=== PATIENT | male | born 1975 | race Caucasian/White ===

== ENCOUNTER 2018-12-05 19:35 | Emergency (ER) | payer SELFPAY ==
[2018-12-05] MEDS ORDERED: Acetaminophen 500 MG TAB ONE (20:06)
== END 2018-12-05 20:15 | disposition home or self-care (01) ==
LOC: MADERS 19:35
DX: S86.811A Strain of other muscle(s) and tendon(s) at lower leg level, right leg, initial encounter (principal); X50.1XXA Overexertion from prolonged static or awkward postures, initial encounter
CPT/HCPCS: 99283

== ENCOUNTER 2019-10-28 21:31 | Emergency (ER) | payer SELFPAY | END 2019-10-28 21:57 | disposition home or self-care (01) | LOC: MADERS 21:31 | DX: K02.9 Dental caries, unspecified (principal); I10 Essential (primary) hypertension; F32.9 Major depressive disorder, single episode, unspecified | CPT/HCPCS: 99282 ==

== ENCOUNTER 2020-07-31 18:39 | Emergency (ER) | payer SELFPAY ==
[2020-07-31] MEDS ORDERED: Cephalexin 500 MG CAP ONE (19:06)
== END 2020-07-31 19:17 | disposition home or self-care (01) ==
LOC: MADERS 18:39
DX: L03.115 Cellulitis of right lower limb (principal); I10 Essential (primary) hypertension
CPT/HCPCS: 99283

== ENCOUNTER 2020-08-01 23:46 | Inpatient (IN) | payer SELFPAY ==
[2020-08-02] MEDS ORDERED: Cefepime 2 GM VIAL ONE (00:32)
[2020-08-02] MEDS ORDERED: Sodium Chloride 0.9% 100 ML ONE (00:33)
[2020-08-02] MEDS ORDERED: HYDROcodone/Acetaminophen 5/325 mg Tablet ONE (00:48)
[2020-08-02] MEDS ORDERED: Sodium Chloride 0.9% 1,000 ML ONE (00:48)
[2020-08-02] MEDS ORDERED: Sodium Chloride 0.9% 250 ML 500 ML ONE (00:55)
[2020-08-02 00:57] LABS: Anion Gap 14 mmol/L (10-20); BUN (Urea Nitrogen) 22 mg/dL (8.9-20.6); Calc. Creatinine Clearance 0 mL/min (70-130); Calcium 8.9 mg/dL (7.8-10.44); Carbon Dioxide 22 mmol/L (22-29); Chloride 106 mmol/L (98-107); Glucose 109 mg/dL (70-105); Potassium 3.7 mmol/L (3.5-5.1); Sodium 138 mmol/L (136-145)
[2020-08-02 01:02] LABS: #Basophils 0.1 thou/uL (0.0-0.2); #Eosinphils 0.1 thou/uL (0.0-0.7); #Lymphocytes 1.5 thou/uL (1.20-3.40); #Monocytes 1.1 thou/uL (0.11-0.59); #Neutrophils 10.1 thou/uL (1.40-6.50); %Basophils 0.6 % (0.0-1.0); %Eosinophils 1.1 % (0.0-10.0); %Lymphocytes 11.6 % (21.0-51.0); %Monocytes 8.5 % (0.0-10.0); %Neutrophils 78.3 % (42.0-75.0); Hemoglobin 13.4 g/dL (14.0-18.0); Mean Corpuscular HGB CONC 33.5 g/dL (32.0-36.0); Mean Corpuscular Hemoglobin 29.2 pg (27.0-31.0); Mean Corpuscular Volume 87.4 fL (78.0-98.0); Mean Platelet Volume 7.8 fL (7.4-10.4); Platelet Count 192 thou/uL (130-400); RBC Distribution Width 11.3 % (11.5-14.5); Red Blood Cell (RBC) Count 4.57 mill/uL (4.70-6.10); White Blood Cell (WBC) Count 12.8 thou/uL (4.8-10.8)
[2020-08-02 02:40] VITALS: BMI 30.9
[2020-08-02] MEDS ORDERED: Ondansetron ODT 4 MG TAB SL PRN (02:44)
[2020-08-02] MEDS ORDERED: HYDROcodone/Acetaminophen 5/325 mg Tablet PO PRN (02:45)
[2020-08-02] MEDS: Cefepime 2 GM in Sodium Chloride 0.9% 100 ML IVPB SCH ×2 (08:07→16:09)
[2020-08-02] MEDS: HYDROcodone/Acetaminophen 5/325 mg Tablet PO PRN ×2 (08:11→13:50)
[2020-08-02] MEDS ORDERED: Acetaminophen 325 MG TAB PO PRN (08:30)
[2020-08-02] MEDS: Dorzolamide HCl 2% Ophth Soln 10 ml Bottle L EYE SCH ×2 (09:39→21:17)
[2020-08-02] MEDS: Brimonidine Tartrate 0.2% Ophth Soln 5 ml Bottle L EYE SCH ×2 (09:40→21:16)
[2020-08-02] MEDS: Vancomycin 1.5 GRAM/300 ML BAG 1.5 GM in Premix Bag 1 BAG IVPB SCH (13:19)
[2020-08-02] MEDS ORDERED: FLU VACC QS2020-21(6MOS UP)/PF 60 MCG/0.5 ML SYRINGE IM ONE (21:00)
[2020-08-03] MEDS: Cefepime 2 GM in Sodium Chloride 0.9% 100 ML IVPB SCH ×2 (00:06→08:31)
[2020-08-03] MEDS: Vancomycin 1.5 GRAM/300 ML BAG 1.5 GM in Premix Bag 1 BAG IVPB SCH (00:06)
[2020-08-03] MEDS: HYDROcodone/Acetaminophen 5/325 mg Tablet PO PRN (02:25)
[2020-08-03 03:11] LABS: SARS-CoV-2 MS2 Positive; SARS-CoV-2 N Gene Negative; SARS-CoV-2 S Gene Negative; SARS-CoV-2 by NAA Not Detected (NotDetected); SARS-CoV-2 orf1ab Negative
[2020-08-03 05:56] LABS: #Basophils 0.1 thou/uL (0.0-0.2); #Eosinphils 0.1 thou/uL (0.0-0.7); #Lymphocytes 1.4 thou/uL (1.20-3.40); #Monocytes 0.8 thou/uL (0.11-0.59); %Basophils 0.8 % (0.0-1.0); %Eosinophils 1.4 % (0.0-10.0); %Lymphocytes 14.7 % (21.0-51.0); %Neutrophils 75.1 % (42.0-75.0); Hemoglobin 13.9 g/dL (14.0-18.0); Mean Corpuscular HGB CONC 33.3 g/dL (32.0-36.0); Mean Corpuscular Volume 87.2 fL (78.0-98.0); Mean Platelet Volume 7.5 fL (7.4-10.4); Platelet Count 185 thou/uL (130-400); RBC Distribution Width 11.2 % (11.5-14.5); Red Blood Cell (RBC) Count 4.79 mill/uL (4.70-6.10); White Blood Cell (WBC) Count 9.4 thou/uL (4.8-10.8)
[2020-08-03 06:05] LABS: Anion Gap 13 mmol/L (10-20); BUN (Urea Nitrogen) 12 mg/dL (8.9-20.6); Calc. Creatinine Clearance 175 mL/min (70-130); Carbon Dioxide 23 mmol/L (22-29); Chloride 106 mmol/L (98-107); Glucose 100 mg/dL (70-105); Potassium 4.1 mmol/L (3.5-5.1); Sodium 138 mmol/L (136-145)
--- NOTE | 2020-08-03 06:30 | HP ---
CHIEF COMPLAINT: Infection in right leg. HISTORY OF PRESENT ILLNESS: The patient is a 45-year-old white male, who has a history of hypertension. He said that he scratched his right knee when he knelt down and something abraded his knee or stuck in his knee. He noticed that the next day, the knee was very red and swelled. He went to the emergency room on 07/31 and was found to have a cellulitis of the right knee. It just localized to the area of the patella and he was not running any fever. He was discharged on cephalexin 500 mg to take 4 times a day. The patient returned to the emergency room late on the evening of 08/01 because the right knee had become very swelled and the redness had extended correction down the lower leg and correction up the upper leg. He was re-evaluated in the emergency room that evening and found to have cellulitis that extends to these limits as mentioned above and indicated that he had failed outpatient management. His lab studies showed H and H of 13.4 and 39.9, white cell count 12,800, with 78% segs, 12% lymphocytes, and platelet count of 192,000. His sodium was 138, potassium 3.7, BUN 22, creatinine 0.86, glucose was 109. Lactic acid 1.0. The patient was admitted to the hospital early on the morning of 08/02/2020 for cellulitis of the right leg that had not responded to outpatient management. He was started on cefepime and vancomycin. The patient was seen early on the morning of 08/02. The patient said he was feeling a lot better, the leg was not hurting like it was, the swelling has gone way down and the redness has really faded and has shrunk to a smaller area. He feels much better. He has had no fever. The patient was able to relate to me the history of kneeling down and something abrading or scraping the right knee and then the development of the infection. 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 The patient has hypertension. He has had meniscus surgery arthroscopically on the right knee years ago. Years ago, he had a fracture of the mandible requiring surgical repair. PRESENT MEDICATIONS: The patient states he takes lisinopril daily, not sure of the dosage. ALLERGIES: BETA-BLOCKERS, MORPHINE, AND PENICILLIN. HE HAS BEEN TAKING CEPHALEXIN RECENTLY WITH NO ILL EFFECT. REVIEW OF SYSTEMS: CONSTITUTIONAL: The patient has had no recent weight gain or loss. He has had no chills or fever. EYES, EARS, NOSE, AND THROAT: The patient is blind in the left eye. The patient wears glasses. PULMONARY: No complaints. CARDIOVASCULAR: No chest pain. GI: No nausea, vomiting, diarrhea. : No complaint. MUSCULOSKELETAL: No complaint. DERMATOLOGIC: No rash other than the redness over the right knee that is better this morning. HABITS: Alcohol, occasionally. Tobacco, none. SOCIAL HISTORY: The patient , lives with his , is presently out of work, but is helping his with her work. PHYSICAL EXAMINATION: GENERAL: Shows a very pleasant 45-year-old white male, who is lying in bed with the right leg elevated on pillows. He is alert, talkative, very pleasant, and appears in no distress. VITAL SIGNS: Show a temperature 98.3, pulse 96, respirations 18, O2 saturation 96% on room air, blood pressure 140/81. Weight 228. HEENT: Head, normocephalic and atraumatic. Ears, TMs clear. Eyes, right pupil is round. Left eye, the cornea is opacified. Sclerae nonicteric. Nose normal. Mouth and throat normal. NECK: Carotids are equal and strong. No bruits. Thyroid not enlarged. LUNGS: Clear. HEART: Regular rate. No murmurs. ABDOMEN: Soft with no organomegaly. No areas of tenderness. EXTREMITIES: Lower extremities; there is no edema. Right leg, there is a little swelling of the right knee, but no effusion. There is redness that is centered over the right knee and extends a third of the way up the leg and a third of the way down into the lower leg. This is much less than the borders that were outlined early this morning. According the patient, the leg feels better, the swelling is down, and the area of redness is much smaller, and also the redness has faded to a pinkness. Lower extremities have no edema. The patient has good motion in the right knee and no pain with movement. SKIN: No rash other than the redness over the right knee. NEUROLOGIC: The patient is alert, oriented x3 with no focal weakness. IMPRESSION: 1. Cellulitis of the right leg. a. Failed to respond to outpatient management. b. Improving since his admission early this morning and started on IV cefepime and vancomycin. 2. 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 PLAN: The patient looks better. We will move him to acute care. We will continue the cefepime and vancomycin, elevation of the leg. The patient presently in isolation until results of his COVID test are known. The patient has not had any recent COVID exposure and has no symptoms suggestive of that. The patient may be up in his room as tolerated. See orders. Job ID: [id number] MTDD
[2020-08-03 07:25] VITALS: BP 133/86; TEMP 97.9
[2020-08-03] MEDS: Brimonidine Tartrate 0.2% Ophth Soln 5 ml Bottle L EYE SCH (08:31)
[2020-08-03] MEDS: Dorzolamide HCl 2% Ophth Soln 10 ml Bottle L EYE SCH (08:32)
--- NOTE | 2020-08-05 05:17 | DIS ---
DATE OF ADMISSION: 08/02/2020 DATE OF DISCHARGE: 08/03/2020 FINAL DIAGNOSES: 1. Cellulitis of the right leg. a. Failed to respond to outpatient management. b. Blood cultures negative. c. Marked improvement such that he was able to be discharged on 08/03. 2. 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 3. History of hypertension, but has been off medicines for over a year and normotensive. HISTORY OF PRESENT ILLNESS: The patient is a very pleasant 45-year-old white male, who had originally presented to the emergency room on 07/31/2020 for swelling and redness and discomfort of his right knee. The patient said he had a knelt down and either just abraded the leg or had a little irritation to the skin. This then became very red and swelled. He was not running any fever. In the emergency room, he was found to have a cellulitis. No evidence of any abscess and he was afebrile. He was discharged on elevation and heat application and cephalexin 500 mg to take four times a day. By the following day 08/01, he said his leg had gotten a lot worse, leg was more swelled and the redness was now extending up into the mid upper leg and mid lower leg. He still was not running fever. Leg was lot hotter and more uncomfortable. He returned to the emergency room on the evening of 08/01 and was found to have a cellulitis of the right leg that had got much worse. He had full range of motion of the right knee. There was no areas of fluctuance and he was free of any fever. His white blood cell count was 12,800. His lactic acid level was 1.0 and he was normotensive. It was elected to admit the patient to the hospital with a diagnosis of cellulitis of the right leg that had failed outpatient management. The patient in the emergency room had blood cultures drawn and then was started on IV cefepime and vancomycin and was admitted. 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 The patient was seen early on the morning of 08/02 and was already feeling better and the redness had already decreased and the extent had also decreased. The swelling he said it has gone down and the leg felt better. The leg was still warm and there was still redness over the knee with no evidence of fluctuance and good motion of the knee. Historically, he has had hypertension, but in the past took lisinopril, but has not taken this for over a year. Blood pressure was normal. He is blind in the left eye with opacification of the cornea as a complication of the retinal detachment and glaucoma. The patient did very well, initially was placed in isolation until the results of his COVID-19 test were back, this returned and the COVID-19 PCR by nasal swab showed no evidence of virus, then his isolation was removed. By 08/03, the patient was feeling good. He remained afebrile with blood cultures, no growth. The leg just had a very slight pinkness and swelling, but markedly improved compared to where it was. His condition was such it is felt that he could now be managed as an outpatient. The patient will gradually increase his activities with that leg elevated, continue to use moist warm pack and will be managed with his cephalexin and will add Vibramycin. DISPOSITION: DIET: Regular diet, no added salt. ACTIVITIES: Elevate the leg. Apply moist warm pack three or four times a day as needed. Gradually increase activities. Monitor blood pressure periodically. MEDICATIONS: 1. Cephalexin 500 mg q.i.d. for 10 days. 2. Vibramycin 100 mg b.i.d. for 10 days. FOLLOWUP: The patient will be seen in followup in my office in 10 days unless there is interval problem. CODE STATUS: Full code. Job ID: [id number] MTDD
== END 2020-08-03 11:05 | disposition home or self-care (01) | DRG 603 ==
LOC: MADERS 23:46 → MADMS 08-02 00:37
PROVIDERS: ADMIT Family Medicine; ATTEND Family Medicine
DX: L03.115 Cellulitis of right lower limb (principal); H33.22 Serous retinal detachment, left eye; I10 Essential (primary) hypertension; H40.9 Unspecified glaucoma; F32.9 Major depressive disorder, single episode, unspecified; Z88.0 Allergy status to penicillin; Z88.6 Allergy status to analgesic agent; Z88.8 Allergy status to other drugs, medicaments and biological substances; Z20.828 Contact with and (suspected) exposure to other viral communicable diseases; Z79.899 Other long term (current) drug therapy; H54.62 Unqualified visual loss, left eye, normal vision right eye
CPT/HCPCS: 36415; 80048; 83605; 85025; 87040; 87149; 87635; 96365; 96375; J0692; J3370; J3490; J7050; U0003

== ENCOUNTER 2021-01-17 21:30 | Emergency (ER) | payer SELFPAY ==
[~2021-01-17 21:30] MED LIST: Sodium Chloride 0.9% 1,000 ML BAG ONE
[2021-01-17] MEDS ORDERED: Ondansetron PF 4 MG/2 ML Vial ONE (21:47)
[2021-01-17] MEDS ORDERED: Ketorolac Tromethamine 30 MG/ML VIAL ONE (21:47)
[2021-01-17 21:57] LABS: #Basophils 0.1 thou/uL (0.0-0.2); #Lymphocytes 0.7 thou/uL (1.20-3.40); #Monocytes 1.7 thou/uL (0.11-0.59); #Neutrophils 13.2 thou/uL (1.40-6.50); %Basophils 0.6 % (0.0-1.0); %Eosinophils 0.1 % (0.0-10.0); %Lymphocytes 4.5 % (21.0-51.0); %Monocytes 11.1 % (0.0-10.0); %Neutrophils 83.8 % (42.0-75.0); Hemoglobin 16.1 g/dL (14.0-18.0); Mean Corpuscular HGB CONC 34.1 g/dL (32.0-36.0); Mean Corpuscular Hemoglobin 29.4 pg (27.0-31.0); Mean Corpuscular Volume 86.2 fL (78.0-98.0); Mean Platelet Volume 8.4 fL (7.4-10.4); Platelet Count 240 thou/uL (130-400); RBC Distribution Width 11.9 % (11.5-14.5); Red Blood Cell (RBC) Count 5.47 mill/uL (4.70-6.10); White Blood Cell (WBC) Count 15.7 thou/uL (4.8-10.8)
[2021-01-17 22:18] LABS: ALT (SGPT) 22 U/L (8-55); AST (SGOT) 18 U/L (5-34); Albumin 4.5 g/dL (3.5-5.0); Alkaline Phosphatase 56 U/L (40-110); Anion Gap 18 mmol/L (10-20); BUN (Urea Nitrogen) 17 mg/dL (8.9-20.6); Bilirubin, Total 0.9 mg/dL (0.2-1.2); CK (CPK) 188 U/L (30-200); CKMB 3.1 ng/mL (0-6.6); Calc. Creatinine Clearance 0 mL/min (70-130); Calcium 9.9 mg/dL (7.8-10.44); Carbon Dioxide 22 mmol/L (22-29); Chloride 106 mmol/L (98-107); Globulin 2.8 g/dL (2.4-3.5); Glucose 143 mg/dL (70-105); Lipase 29 U/L (8-78); Potassium 3.9 mmol/L (3.5-5.1); Protein, Total 7.3 g/dL (6.0-8.3); Sodium 142 mmol/L (136-145)
[2021-01-18 00:05] LABS: Bilirubin Moderate (Negative); Blood, Urine Negative (Negative); Clarity Clear (Clear); Glucose, Urine (Dipstick) Negative (Negative); Ketone, Urine Negative (Negative); Leukocyte Negative (Negative); Nitrite Negative (Negative); Protein, Urine (Dipstick) Negative (Neg-Trace); Specific Gravity, Urine 1.015 (1.005-1.030); Urobilinogen 0.2 mg/dL (Less than 2); pH, Urine 8.5 (5.0-9.0)
[2021-01-18 00:10] LABS: Bacteria/HPF None Seen HPF (None Seen); Mucous/LPF 2+ LPF (<2+); RBC/HPF None Seen HPF (0-3); Squamous Epithelial 0-3 HPF (0-3); WBC/HPF None Seen HPF (0-3)
[2021-01-18 01:02] LABS: Troponin I Less than 0.010 ng/mL (< 0.028)
== END 2021-01-18 01:13 | disposition home or self-care (01) ==
LOC: MADERS 21:30
DX: R10.13 Epigastric pain (principal); R19.7 Diarrhea, unspecified; R11.2 Nausea with vomiting, unspecified; I10 Essential (primary) hypertension; R07.9 Chest pain, unspecified; R06.02 Shortness of breath
CPT/HCPCS: 36415; 71045; 71275; 74176; 80053; 81001; 82550; 82553; 83690; 84484; 85025; 85379; 93005; 96374; 96375; J1885; J2405; J7050

== ENCOUNTER 2021-03-31 21:06 | Emergency (ER) | payer SELFPAY ==
[2021-03-31] MEDS ORDERED: predniSONE 20 MG TAB ONE (22:01)
== END 2021-03-31 22:50 | disposition home or self-care (01) ==
LOC: MADERS 21:06
DX: L23.7 Allergic contact dermatitis due to plants, except food (principal); I10 Essential (primary) hypertension
CPT/HCPCS: 99282; J7512

== ENCOUNTER 2024-05-16 19:48 | Emergency (ER) | payer OTHER, SELFPAY ==
[~2024-05-16 19:48] MED LIST changes: +Iopamidol 370 76% 100 ML VIAL ONE; -Sodium Chloride 0.9% 1,000 ML BAG ONE
[2024-05-16 20:10] LABS: #Basophils 0.1 thou/uL (0.0-0.2); #Eosinphils 0.1 thou/uL (0.0-0.7); #Lymphocytes 2.2 thou/uL (1.20-3.40); #Neutrophils 6.3 thou/uL (1.40-6.50); %Basophils 0.9 % (0.0-1.0); %Eosinophils 1.3 % (0.0-10.0); %Lymphocytes 22.1 % (21.0-51.0); %Monocytes 10.7 % (0.0-10.0); Hematocrit 44.7 % (42.0-52.0); Hemoglobin 14.8 g/dL (14.0-18.0); Mean Corpuscular HGB CONC 33.2 g/dL (32.0-36.0); Mean Corpuscular Hemoglobin 29.2 pg (27.0-31.0); Mean Corpuscular Volume 87.8 fl (78.0-98.0); Platelet Count 272 10x3/uL (130-400); RBC Distribution Width 12.8 % (11.5-14.5); Red Blood Cell (RBC) Count 5.09 mill/uL (4.70-6.10); White Blood Cell (WBC) Count 9.7 10x3/uL (4.8-10.8)
[2024-05-16] MEDS ORDERED: HYDROmorphone 0.5 MG/0.5 ML SYRINGE ONE ×2 (20:17→21:34)
[2024-05-16] MEDS ORDERED: Ondansetron PF 4 MG/2 ML Vial ONE (20:17)
[2024-05-16 20:28] LABS: ALT (SGPT) 19 U/L (8-55); AST (SGOT) 15 U/L (5-34); Albumin 4.2 g/dL (3.5-5.0); Alkaline Phosphatase 55 U/L (40-110); Anion Gap 17 mmol/L (10-20); BUN (Urea Nitrogen) 15 mg/dL (8.9-20.6); Bilirubin, Total 0.6 mg/dL (0.2-1.2); Calc. Creatinine Clearance 0 mL/min (70-130); Calcium 9.7 mg/dL (7.8-10.44); Carbon Dioxide 23 mmol/L (22-29); Chloride 106 mmol/L (98-107); Estimated GFR 75; Glucose 142 mg/dL (70-105); Potassium 3.5 mmol/L (3.5-5.1); Protein, Total 7.2 g/dL (6.0-8.3); Sodium 142 mmol/L (136-145); Troponin I Less than 0.010 ng/mL (< 0.028)
[2024-05-16] MEDS ORDERED: Pantoprazole 40 MG VIAL ONE (21:03)
[2024-05-16] MEDS ORDERED: Ketorolac Tromethamine 30 MG (1 mL) VIAL ONE (21:34)
== END 2024-05-17 02:29 | disposition short-term general hospital (02) ==
LOC: MADERS 19:48
DX: K80.20 Calculus of gallbladder without cholecystitis without obstruction (principal); F15.90 Other stimulant use, unspecified, uncomplicated; I10 Essential (primary) hypertension
CPT/HCPCS: 71045; 71275; 74174; 80053; 83605; 83880; 84484; 85025; 93005; 96374; 96375; 96376; J1170; J1885; J2405; J2470; Q9967

== ENCOUNTER 2025-06-09 21:58 | Emergency (ER) | payer OTHER ==
[2025-06-09] MEDS ORDERED: Cephalexin 500 MG CAP ONE (23:24)
== END 2025-06-09 23:38 | disposition home or self-care (01) ==
LOC: MADERS 21:58
DX: Z47.89 Encounter for other orthopedic aftercare (principal); L03.116 Cellulitis of left lower limb; I10 Essential (primary) hypertension
CPT/HCPCS: 99283